=== PATIENT | female | born 1965 | race Caucasian/White ===

== ENCOUNTER → 2017-03-29 | Outpatient (CLI) | payer MEDICAID ==
[2017-03-29 09:24] LABS: Basophils # (A) 0.1 k/uL (0-0.2); Basophils % (A) 1 %; CH 26.8; Eosinophils # (A) 0.2 k/uL (0-0.7); Eosinophils % (A) 2 %; HCT 41.2 % (34.0-46.0); HDW 2.58; HGB 12.9 gm/dL (11.4-16.0); Luc # (Auto) 0.26; Luc % (Auto) 2; Lymphocytes # (A) 3.2 k/uL (1.0-4.8); Lymphocytes % (A) 30 %; MCH 26.4 pg (25.0-35.0); MCHC 31.3 g/dL (31.0-37.0); MCV 84.3 fL (80.0-100.0); Mean Platelet Volume 7.8; Monocytes # (A) 0.5 k/uL (0-1.0); Monocytes % (A) 4 %; Neutrophils # (A) 6.7 k/uL (1.3-7.7); Neutrophils % (A) 61 %; RBC 4.89 m/uL (3.80-5.40); RDW 13.7 % (11.5-15.5); WBC (Perox) 11.69
== END | disposition home or self-care (01) ==
LOC: LABPAT 08:49
PROVIDERS: ATTEND Obstetrics & Gynecology
DX: Z01.812 Encounter for preprocedural laboratory examination (principal); N85.00 Endometrial hyperplasia, unspecified
CPT/HCPCS: 85025

== ENCOUNTER 2017-04-14 08:20 | Day surgery (SDC) | payer MEDICAID ==
[2017-04-09 08:58] VITALS: BMI 40.7
[~2017-04-14 08:20] MED LIST: DEXAMETHASONE SOD PHOSPHATE 10 MG/ML 1 ML VIAL IV ONE; HYDROmorphone 1 MG/ML 1 ML SYRINGE IVP PRN; LACTATED RINGERS 1,000 ML IV SCH; LIDOCAINE 1% 20 ML VIAL (10MG/ML) FOR IV START INTRADERMA PRN; MIDAZOLAM 2 MG/2 ML VIAL IV PRN; ONDANSETRON 4 MG/2 ML VIAL IVP ONE; Pre Op ABX Message 1 EACH MISC MISCELLANE ONE; SCOPOLAMINE 1.5MG/72HR PATCH TRANSDERM ONE
[2017-04-14] MEDS ORDERED: LACTATED RINGERS 1,000 ML IV ONE (09:28)
[2017-04-14 09:54] LABS: Glucose,Whole Blood 216 mg/dL (75-99)
[2017-04-14] MEDS ORDERED: MIDAZOLAM 2 MG/2 ML VIAL ONE (10:01)
[2017-04-14] MEDS ORDERED: LIDOCAINE 1% INJ 10MG/ML (20 ML MDV) ONE (10:01)
[2017-04-14] MEDS ORDERED: KETOROLAC 30 MG/ML 1 ML VIAL ONE (10:01)
[2017-04-14] MEDS ORDERED: PROPOFOL 10 MG/ML 20 ML VIAL IV ONE (10:01)
[2017-04-14] MEDS ORDERED: fentaNYL (PF) 50 MCG/ML 2 ML AMP ONE (10:01)
[2017-04-14] MEDS ORDERED: BUPIVACAINE-EPI 0.5%-1:200,000 10 ML VIAL SQ ONE ×2 (10:08→10:16)
[2017-04-14 10:34] VITALS: TEMP 97
[2017-04-14 10:47] VITALS: RESP 16
--- NOTE | 2017-04-14 10:52 | P.OP ---
Date of Procedure: 04/14/17 Preoperative Diagnosis: Endometrial hyperplasia Postoperative Diagnosis: Endometrial hyperplasia Endometrial polyp Procedure(s) Performed: Diagnostic hysteroscopy, D&C, polypectomy Anesthesia: MAC Surgeon: Tg Faust Estimated Blood Loss (ml): 5 IV fluids (ml): 700 Urine output (ml): 10 Pathology: other (Endometrial curettings) Condition: stable Disposition: PACU Operative Findings: On diagnostic hysteroscopy there is a polypoid structure emanating from the posterior left fundus of the uterus consistent with endometrial polyp. The remainder of the endometrium appeared atrophic. Description of Procedure: After the patient was met preoperatively in the holding area and all questions were answered, she was taken the operating room where anesthetic was administered without incident. She is in positioned, prepped and draped in the dorsal lithotomy position. Bladder was drained for a small amount of clear urine. Exam under anesthetic was undertaken. Single-sided speculum was placed in the vagina and the cervix was grasped anteriorly with a single-tooth tenaculum. The uterus was sounded to 7 cm. The cervix was sequentially dilated to allow for passage of the diagnostic hysteroscope. The hysteroscope was introduced and the above findings were noted. Hysteroscope was removed and the cervix was further dilated to allow for passage of the stone polyp forceps. Polyp forceps were introduced and polypoid type tissue was removed. The sharp banjo curette was then introduced and the uterus was circumferentially curettaged with scant additional tissue obtained. The cervix was observed and no further active bleeding was noted. Instruments removed from the vagina and the patient was awoken from anesthetic. She was transported recovery area in stable condition. All counts reported to me as correct.
[2017-04-14 11:26] VITALS: BP 114/73; PULSE 67
== END 2017-04-14 11:59 | disposition home or self-care (01) ==
LOC: OR 08:20
PROVIDERS: ATTEND Obstetrics & Gynecology
DX: N84.0 Polyp of corpus uteri (principal); N85.01 Benign endometrial hyperplasia; Z80.8 Family history of malignant neoplasm of other organs or systems; E78.5 Hyperlipidemia, unspecified; E11.9 Type 2 diabetes mellitus without complications; Z79.84 Long term (current) use of oral hypoglycemic drugs; E04.1 Nontoxic single thyroid nodule; Z98.84 Bariatric surgery status; Z79.899 Other long term (current) drug therapy; Z88.2 Allergy status to sulfonamides
CPT/HCPCS: 88305; 58558; J2250; J1100; J2405; J2001; J3010; J1885; J1170; J2704